=== PATIENT | male | born 2000 | race Caucasian/White ===

== ENCOUNTER 2023-12-12 19:22 | Emergency (ER) | payer BC ==
[~2023-12-12] VITALS: Ht 188 cm; Wt 68.2 kg
[2023-12-12 19:30] VITALS: TEMP 98.2
[2023-12-12] MEDS ORDERED: NO HOME MEDS (19:35)
[2023-12-12] MEDS ORDERED: ONDA-243 PO (20:00)
[2023-12-12] MEDS ORDERED: TRAZ-256 PO (20:00)
[2023-12-12] MEDS: ondansetron 4mg rapidly disintigrating tab PO ONE (20:05)
[2023-12-12] MEDS: chlordiazePOXIDE 25mg capsule PO ONE (20:05)
[2023-12-12 20:08] VITALS: BP 124/78; PULSE 89; RESP 16; O2SAT 100
== END 2023-12-12 20:09 | disposition home or self-care (01) ==
LOC: ER 19:23
DX: F14.10 Cocaine abuse, uncomplicated (principal); F10.10 Alcohol abuse, uncomplicated
CPT/HCPCS: 99283